=== PATIENT | female | born 1995 | race Caucasian/White ===

== ENCOUNTER 2022-06-04 02:27 | Outpatient (CLI) | payer OTHER ==
[~2022-06-04 02:27] MED LIST: PRENATAL VITAM1 EAC8 PO
== END 2022-06-04 04:10 | disposition home or self-care (01) ==
LOC: GENOP 02:27
DX: O47.1 False labor at or after 37 completed weeks of gestation (principal); Z3A.37 37 weeks gestation of pregnancy
CPT/HCPCS: 81001; G0463

== ENCOUNTER 2022-06-11 21:46 | Outpatient (CLI) | payer OTHER ==
[2022-06-13] MEDS ORDERED: IBUPROFEN600 MG PO (03:55)
[2022-06-13] MEDS ORDERED: COLACE100 MG PO (03:55)
== END 2022-06-12 01:19 | disposition home or self-care (01) ==
LOC: GENOP 21:46
DX: O47.1 False labor at or after 37 completed weeks of gestation (principal); Z3A.38 38 weeks gestation of pregnancy
CPT/HCPCS: 81001; 96360

== ENCOUNTER 2022-06-13 00:11 | Inpatient (IN) | payer OTHER ==
[~2022-06-13] VITALS: Ht 157.5 cm; Wt 89.8 kg
[2022-06-13 01:08] LABS: HEMOGLOBIN 11.9 gm/dl (12.3-15.3); RED BLOOD COUNT 3.99 M/UL (4.00-5.10); WHITE BLOOD COUNT 14.6 K/UL (4.5-11.0)
[2022-06-13] MEDS ORDERED: IBUPROFEN600 MG PO (03:55)
[2022-06-13] MEDS ORDERED: COLACE100 MG PO (03:55)
[2022-06-14 04:44] LABS: HEMOGLOBIN 10.5 gm/dl (12.3-15.3)
[2022-06-14] MEDS ORDERED: COLACE 100MG C100 MG PO (09:35)
[2022-06-14] MEDS ORDERED: IBUPROFEN600 MG PO (09:35)
== END 2022-06-14 18:58 | disposition home or self-care (01) | DRG 807 ==
LOC: GENOP 00:11 → OB 00:44
PROVIDERS: Obstetrics & Gynecology; ADMIT Obstetrics & Gynecology
PROC: 10E0XZZ Delivery of Products of Conception, External Approach (ICD-10-PCS; principal; 2022-06-13)
PROC: 0KQM0ZZ Repair Perineum Muscle, Open Approach (ICD-10-PCS; 2022-06-13)
PROC: 4A1HXCZ Monitoring of Products of Conception, Cardiac Rate, External Approach (ICD-10-PCS; 2022-06-13)
PROC: 10907ZC Drainage of Amniotic Fluid, Therapeutic from Products of Conception, Via Natural or Artificial Opening (ICD-10-PCS; 2022-06-13)
PROC: 3E0234Z Introduction of Serum, Toxoid and Vaccine into Muscle, Percutaneous Approach (ICD-10-PCS; 2022-06-13)
DX: O99.334 Smoking (tobacco) complicating childbirth (principal); Z37.0 Single live birth; Z3A.37 37 weeks gestation of pregnancy; F17.210 Nicotine dependence, cigarettes, uncomplicated; Z82.0 Family history of epilepsy and other diseases of the nervous system; Z82.49 Family history of ischemic heart disease and other diseases of the circulatory system; Z83.3 Family history of diabetes mellitus; O70.1 Second degree perineal laceration during delivery; Z23 Encounter for immunization
CPT/HCPCS: 36415; 81001; 85014; 85018; 85025; 90715; J2405; J3010